=== PATIENT | female | born 1990 | race Asian ===

== ENCOUNTER 2017-12-14 09:56 | Outpatient (CLI) | payer OTHER ==
--- NOTE | 2017-12-14 15:20 | ULT ---
OB ULTRASOUND: HISTORY: Size and dates followup. FINDINGS: A single live intrauterine gestation is seen with measurements corresponding to an estimated gestatio nal age of 38 weeks 4 days and ROBBIN at 03/04/18. The estimated weight measures 1038 gm or 2 vilma nds and 5 ounces. measurements are as follows: BPD 7.51 cm, 30 weeks 1 day HC 27.57 cm, 30 weeks 1 day AC 21.94 cm, 26 weeks 3 days FL 5.03 cm, 27 weeks 0 days The cervical length measures 3.7 cm. NO measures 13.9 cm. heart rate measures 1.5 b.p.m. A 3-vessel cord, cord insertion, kidneys, bladder, stomach, 4-chamber heart, spine, lips/nose, upper and lower extremities, and cerebellum are well visualized. The lateral ventricles are not visu alized due to head position. Presentation is cephalic. Placenta is posteriorly located without evidence of placenta previa. IMPRESSION: Single live intrauterine of 28 weeks 4 days and estimated date of delivery at 03/04/18. POS: [facility]
== END 2017-12-14 09:57 | disposition home or self-care (01) ==
LOC: ULT 09:56
PROVIDERS: ATTEND Family Medicine
DX: Z34.83 Encounter for supervision of other normal pregnancy, third trimester (principal); Z3A.28 28 weeks gestation of pregnancy
CPT/HCPCS: 76805

== ENCOUNTER 2018-02-23 18:51 | Day surgery (SDC) | payer OTHER ==
[2018-02-23 19:27] VITALS: TEMP 98.6; BMI 22.5
[2018-02-23 20:11] VITALS: BP 111/68
[2018-02-23 20:15] LABS: Amnisure Internal Control QC ACCEPTABLE (ACCEPTABLE); Amnisure Test RUPTURE DETECTED (No Rupture)
--- NOTE | 2018-02-23 21:39 | PDOC.LDHP ---
Labor and Delivery H&P Chief complaint: contractions HPI: 27 y/o at 39w5d, patient of Dr. Layton, presents with ctx, ?LOF, and small amount of bleeding. +FM. No other complaints. ROS neg for HEENT, cv, pulm, gi, gu, neuro, psych, skin, musculoskeletal or constitutional symptoms other than mentioned above. OB History Details: 1 prior Current complications: none Past Medical History: None Current medications: pre- vitamins Previous surgical history: none Allergies/Adverse Reactions: Allergies Allergy/AdvReac Type Severity Reaction Status Date / Time No Known Allergies Allergy Verified 02/23/18 19:17 Social history: none - Physical Exam Vital signs reviewed and normal: yes General: NAD, resting Lungs: nonlabored breathing Abdomen: gravid Extremeties: no edema FHT: category 1 (140s, mod varaibility, + accels, no decels) Snook contractions every: occasional - Vaginal Exam cm dilated: 1 Effacement: 25% Station: -3 - Assessment 27 y/o at 39w5d with no e/o active labor. status reassuring with reactive NST. - Plan -: D/c home with precautions. Advised to keep all appointments.
== END 2018-02-23 22:30 | disposition home or self-care (01) ==
LOC: L&D/OP 18:51
PROVIDERS: ATTEND Family Medicine
DX: O47.1 False labor at or after 37 completed weeks of gestation (principal); Z3A.39 39 weeks gestation of pregnancy
CPT/HCPCS: 76815; 84112; 99284

== ENCOUNTER 2018-02-25 03:33 | Inpatient (IN) | payer OTHER, SELFPAY ==
[2018-02-25] MEDS: Lactated Ringer's 1,000 ML IV SCH (04:10)
[2018-02-25] MEDS ORDERED: Promethazine HCl 25 MG/ML VIAL IM PRN ×2 (04:18→05:17)
[2018-02-25] MEDS ORDERED: Ondansetron PF 4 MG/2 ML Vial IVP PRN ×2 (04:18→05:17)
[2018-02-25] MEDS ORDERED: Butorphanol Tartrate 1 MG/ML VIAL SLOW IVP PRN (04:18)
[2018-02-25] MEDS ORDERED: Acetaminophen 500 MG TAB PO PRN (04:18)
[2018-02-25] MEDS ORDERED: Methylergonovine 0.2 MG/ML VIAL IM PRN (04:30)
[2018-02-25] MEDS ORDERED: Ibuprofen 800 MG TAB PO PRN (04:30)
[2018-02-25] MEDS ORDERED: Lidocaine 1% (PF) 30 ML VIAL SC PRN (04:30)
[2018-02-25] MEDS ORDERED: NS w/ Oxytocin 10 units 500 ML IV SCH ×2 (04:30)
[2018-02-25] MEDS ORDERED: Misoprostol 200 MCG TAB RC PRN (04:30)
[2018-02-25 04:40] LABS: Hemoglobin 11.7 g/dL (12.0-16.0); Mean Corpuscular HGB CONC 34.5 g/dL (32.0-36.0); Mean Corpuscular Hemoglobin 36.3 pg (27.0-31.0); Mean Platelet Volume 7.4 fL (7.4-10.4); Platelet Count 234 thou/uL (130-400); RBC Distribution Width 11.8 % (11.5-14.5); Red Blood Cell (RBC) Count 3.22 mill/uL (4.20-5.40); White Blood Cell (WBC) Count 8.4 thou/uL (4.8-10.8)
[2018-02-25] MEDS ORDERED: Fentanyl 4 mcg/Bup 0.1% Cadd 100 ML ONE (04:47)
[2018-02-25 05:15] LABS: HBSAg Index 0.22 S/CO (0-0.99); Hep B Surf Ag Non-Reactive S/CO (NonReactive)
[2018-02-25] MEDS ORDERED: Eucerin (Mineral Oil/Petrolatum,White) 30 gm Jar TOP PRN (05:17)
[2018-02-25] MEDS ORDERED: diphenhydrAMINE 50 MG/ML VIAL IVP PRN (05:17)
[2018-02-25] MEDS ORDERED: Acetaminophen 325 MG TAB PO PRN (05:17)
[2018-02-25] MEDS ORDERED: Naloxone HCl 0.4 mg/ml Vial IVP PRN ×2 (05:17)
[2018-02-25] MEDS ORDERED: ePHEDrine/0.9% NaCl/PF SYRINGE 50 mg/10 ml SLOW IVP PRN (05:17)
[2018-02-25] MEDS ORDERED: Lactated Ringer's 500 ML IV PRN (05:17)
[2018-02-25 05:25] VITALS: BMI 22.7
[2018-02-25] MEDS ORDERED: Fentanyl 4 mcg/Bupivacaine 0.1% Cassette 100 ML EPIDURAL SCH (05:30)
[2018-02-25] MEDS ORDERED: Communication Order-Pharmacy FS SCH (05:30)
[2018-02-25 05:56] LABS: Syphilis Antibody Nonreactive (Nonreactive); Syphilis Antibody Index 0.07 S/CO (<1.00 Non-Reactive)
[2018-02-25] MEDS ORDERED: NS / Oxytocin 40 units/1000ml 1,000 ML ONE ×2 (10:41→13:30)
[2018-02-25] MEDS ORDERED: Lidocaine 1% (PF) 30 ML VIAL ONE (10:41)
[2018-02-25] MEDS ORDERED: Bupivacaine/Epinephrine 0.25% 30 ML VIAL ONE (11:11)
[2018-02-25] MEDS ORDERED: NS / Oxytocin 40 units/1000ml 1,000 ML IV SCH (13:58)
[2018-02-25] MEDS ORDERED: Lanolin Ointment 7 GM TUBE TOP PRN (13:58)
[2018-02-25] MEDS ORDERED: Adacel (T-DAP) 0.5 ML SYRINGE IM ONE (13:58)
[2018-02-25] MEDS ORDERED: Bisacodyl 10 MG SUPP PR PRN (13:58)
[2018-02-25] MEDS ORDERED: Milk Of Magnesia 30 ML UDCUP PO PRN (13:58)
[2018-02-25] MEDS ORDERED: HYDROcodone/Acetaminophen 5/325 mg Tablet PO PRN (13:58)
[2018-02-25] MEDS: Ibuprofen 800 MG TAB PO SCH ×2 (14:32→21:53)
[2018-02-25] MEDS: Ferrous Sulfate 325 MG TAB PO SCH (15:06)
[2018-02-25] MEDS: Docusate Calcium (SURFAK) 240 MG CAP PO SCH (21:53)
[2018-02-26] MEDS: Lactated Ringer's 1,000 ML IV SCH (02:57)
[2018-02-26] MEDS: Ibuprofen 800 MG TAB PO SCH ×2 (05:53→13:22)
[2018-02-26] MEDS: Ferrous Sulfate 325 MG TAB PO SCH ×2 (08:11→11:30)
[2018-02-26] MEDS: Docusate Calcium (SURFAK) 240 MG CAP PO SCH (08:12)
--- NOTE | 2018-02-26 15:49 | PDOC.PP ---
Post Progress Note Post Day #: 1 Subjective: No c/o. Able to void. Breast and bottle feeding without issues. PO intake tolerated: yes Flatus: yes Ambulation: yes Vital Signs (12 hours) Temp Pulse Resp BP Pulse Ox 02/26/18 08:13 98.1 F 57 L 20 89/53 L 98 02/26/18 04:05 98.0 F 61 16 91/53 L Weight Weight 145 lb - Physical Examination General: NAD Cardiovascular: no m/r/g, RRR Respiratory: clear to auscultation bilaterally, non-labored breathing Abdominal: + bowel sounds, lochia, no distention, appropriately TTP Result Diagrams: 02/25/18 04:10 Additional Labs: Post Labs Blood Type O POSITIVE 02/25/18 04:10 Hep Bs Antigen Non-Reactive S/CO (NonReactive) 02/25/18 04:10 (1) Vaginal delivery Code(s): O80 - ENCOUNTER FOR FULL-TERM UNCOMPLICATED DELIVERY Status: Acute - Assessment/Plan Routine PP care D/C tomorrow
[2018-02-27] MEDS: Ibuprofen 800 MG TAB PO SCH ×2 (00:39→07:01)
[2018-02-27] MEDS: Docusate Calcium (SURFAK) 240 MG CAP PO SCH ×2 (00:42→10:12)
[2018-02-27] MEDS: Ferrous Sulfate 325 MG TAB PO SCH (08:57)
[2018-02-27 09:11] VITALS: BP 102/53; TEMP 97.4
== END 2018-02-27 12:40 | disposition home or self-care (01) | DRG 807 ==
LOC: L&D/OP 03:33 → L&D 04:07 → 3SW 13:42
PROVIDERS: ADMIT Family Medicine; ATTEND Family Medicine
PROC: 10E0XZZ Delivery of Products of Conception, External Approach (ICD-10-PCS; principal; 2018-02-25)
PROC: 10907ZC Drainage of Amniotic Fluid, Therapeutic from Products of Conception, Via Natural or Artificial Opening (ICD-10-PCS; 2018-02-25)
PROC: 3E033VJ Introduction of Other Hormone into Peripheral Vein, Percutaneous Approach (ICD-10-PCS; 2018-02-25)
DX: O80 Encounter for full-term uncomplicated delivery (principal); Z37.0 Single live birth; Z3A.40 40 weeks gestation of pregnancy
CPT/HCPCS: 51702; 85027; 86780; 86850; 86900; 86901; 87340; 99285; J2001; J2405